=== PATIENT | male | born 1990 | race Caucasian/White ===

== ENCOUNTER 2017-11-23 03:03 | Emergency (ER) | payer BC ==
[2017-11-23 04:00] LABS: ADD MAN DIFF? NO
[2017-11-23 04:05] LABS: BASO % 0 % (0-3); EOS # 0.1 x10^3/uL (0.0-0.7); EOS % 2 % (0-3); HEMATOCRIT 42.6 % (39.0-53.0); HEMOGLOBIN 14.8 g/dL (13.0-17.5); LYMPH # 2.8 x10^3/uL (1.0-4.8); LYMPH % 34 % (24-48); MEAN CORPUSCULAR HEMOGLOBIN 31 pg (25-35); MEAN CORPUSCULAR HGB CONC 35 g/dL (31-37); MEAN CORPUSCULAR VOLUME 88 fL (79-100); MONO # 0.5 x10^3/uL (0.0-1.1); MONO % 7 % (0-9); NEUT # 4.8 x10^3uL (1.8-7.7); NEUT % 58 % (31-73); PLATELET COUNT 237 x10^3/uL (140-400); RED BLOOD COUNT 4.82 x10^6/uL (4.30-5.70); RED CELL DISTRIBUTION WIDTH 13.5 % (11.5-14.5); WHITE BLOOD COUNT 8.3 x10^3/uL (4.0-11.0)
[2017-11-23 04:10] LABS: ANION GAP 3 (6-14); BLOOD UREA NITROGEN 17 mg/dL (8-26); CALCIUM 8.8 mg/dL (8.5-10.1); CARBON DIOXIDE 29 mmol/L (21-32); CHLORIDE 104 mmol/L (98-107); GLUCOSE 116 mg/dL (70-99); POTASSIUM 3.8 mmol/L (3.5-5.1); SODIUM 136 mmol/L (136-145)
[2017-11-23 04:16] LABS: ALBUMIN 3.5 g/dL (3.4-5.0); ALK PHOS 66 U/L (46-116); ALT (SGPT) 37 U/L (16-63); AST (SGOT) 16 U/L (15-37); DIRECT BILIRUBIN 0.1 mg/dL (0.0-0.2); TOTAL BILIRUBIN 0.3 mg/dL (0.2-1.0); TOTAL PROTEIN 6.8 g/dL (6.4-8.2)
[2017-11-23] MEDS ORDERED: CONTRAST GIVEN. MC (04:30)
[2017-11-23] MEDS: IOHEXOL 300 MG/ML 100ML VIAL. IV (04:45)
== END 2017-11-23 05:38 | disposition home or self-care (01) ==
LOC: ER 03:03
DX: R10.11 Right upper quadrant pain (principal); M79.1 Myalgia; R11.0 Nausea; R22.2 Localized swelling, mass and lump, trunk; K21.9 Gastro-esophageal reflux disease without esophagitis; I10 Essential (primary) hypertension
CPT/HCPCS: 36415; 74177; 76705; 80048; 80076; 85025; 99285-25; Q9967

== ENCOUNTER → 2018-01-03 | Outpatient (CLI) | payer BC ==
[2017-11-23 05:30] VITALS: BP 133/68
[~2018-01-03] VITALS: Ht 185.4 cm; Wt 170.1 kg
[~2018-01-03] MED LIST: NORMAL SALINE IV ONE; SINCALIDE IV ONE
--- NOTE | 2018-01-03 14:54 | RAD ---
Exam performed: Nuclear medicine hepatobiliary scan. History: Right upper quadrant pain Following intravenous administration of 5.5 mCi of Choletec tagged with Tc, sequential gamma camera images of the right upper quadrant of the abdomen were obtained. There is prompt accumulation of radionuclide in the liver which appears to be unremarkable Prompt accumulation in the central intrahepatic biliary radicals, gallbladder, common bile duct and small bowel is noted. Patient was also infused with 3.4mcg of CCK and gallbladder ejection fraction was calculated which measures 98%. Impression: Normal nuclear hepatobiliary scan with normal gallbladder ejection fraction measuring 98%. Electronically signed by: Silvano Piper MD (01/03/2018 2:50 PM) [id number]
== END | disposition home or self-care (01) ==
LOC: NM 12:04
PROVIDERS: ATTEND Family Medicine
DX: R10.11 Right upper quadrant pain (principal); I10 Essential (primary) hypertension; K21.9 Gastro-esophageal reflux disease without esophagitis
CPT/HCPCS: 78226; 96374; 96375; A9537; J2805